=== PATIENT | male | born 1955 | race Asian ===

== ENCOUNTER 2022-01-19 09:08 | Outpatient (CLI) | payer OTHER, MEDICAID, SELFPAY ==
--- NOTE | 2022-01-19 10:04 | ECHO_ITS ---
Patient Info Name: Joaquim Fletcher Age: 66 years : 1955 Gender: Male Ht: 67 in Wt: 134 lbs BSA: 1.69 m2 HR: 95 bpm BP: 138 / 91 mmHg Heart Rhythm: Atrial Fibrillation Technical Quality: Fair Exam Date: 01/19/2022 10:35 AM Exam Location: [facility] Patient Status: Outpatient Admit Date: 01/19/2022 Staff Ordering Physician: Ji Salinas DO [employer] Equipment Operator: Inderjit De La Torre RDCS Attending Provider: Ji Salinas DO Referring Physician: Brad COLVIN; Exam Type: CA echo doppler color flow Study Info Indications - unspecified atrial fibrillation Complete two-dimensional, color flow and Doppler transthoracic echocardiogram is performed. Summary 1. Complete two-dimensional, color flow and Doppler transthoracic echocardiogram is performed. 2. Left ventricular chamber dimension is normal. 3. Left ventricular systolic function is normal, estimated at 60-65%. 4. The left ventricular diastolic function is indeterminate. 5. Tissue doppler E/e' is not performed. 6. Atrial fibrillation. 7. Right ventricular systolic function is reduced based on abnormal TAPSE 1.1 cm. 8. Left atrial chamber dimension is moderately enlarged. 9. There is mild aortic valve sclerosis. 10. The mechanical mitral valve leaflets noted but not well seen. 11. 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 12. There is trace regurgitation of the mechanical mitral valve. 13. There is mild to moderate tricuspid valve regurgitation. 14. No pulmonary hypertension, estimated pulmonary arterial systolic pressure is 33 mmHg. Left Ventricle Tissue doppler E/e' is not performed. Atrial fibrillation. Left ventricular chamber dimension is normal. Left ventricular systolic function is normal, estimated at 60-65%. The left ventricular diastolic function is indeterminate. Right Ventricle Right ventricular systolic function is reduced based on abnormal TAPSE 1.1 cm. Right ventricular chamber dimension is not well visualized. Left Atria Left atrial chamber dimension is moderately enlarged. Right Atria Right atrial chamber dimension is normal. Aortic Valve The aortic valve is trileaflet. There is mild aortic valve sclerosis. There is no aortic valve stenosis. There is no aortic valve regurgitation. Pulmonic Valve There is no pulmonic regurgitation. Mitral Valve The mechanical mitral valve leaflets noted but not well seen. 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 There is trace regurgitation of the mechanical mitral valve. Tricuspid Valve There is mild to moderate tricuspid valve regurgitation. No pulmonary hypertension, estimated pulmonary arterial systolic pressure is 33 mmHg. Pericardium/Pleural There is no pericardial effusion. Inferior Vena Cava Normal inferior vena cava with >50% collapse upon inspiration consistent with normal right atrial pressure, 5 mmHg. Aorta The aortic root size at the sinus of Valsalva is normal. Left Ventricular Outflow Tract Name Value Normal LVOT 2D LVOT Diameter 1.7 cm LVOT Doppler
== END 2022-01-19 09:09 | disposition home or self-care (01) ==
PROVIDERS: Visit Provider Internal Medicine Cardiovascular Disease
DX: I48.91 Unspecified atrial fibrillation (principal); I35.8 Other nonrheumatic aortic valve disorders; I05.0 Rheumatic mitral stenosis; I07.1 Rheumatic tricuspid insufficiency
CPT/HCPCS: 93306